=== PATIENT | female | born 1995 | race Caucasian/White ===

== ENCOUNTER → 2016-12-23 | Outpatient (CLI) | payer OTHER | LOC: COL.RAD 12:18 | DX: N83.202 Unspecified ovarian cyst, left side (principal) ==

== ENCOUNTER 2017-04-25 13:01 | Emergency (ER) | payer OTHER ==
[~2017-04-25] VITALS: Ht 160 cm; Wt 106.8 kg
[2017-04-25 13:16] VITALS: TEMP 98.8
[2017-04-25] MEDS ORDERED: JUNEL 1.5 MG-31 EACH PO (13:21)
[2017-04-25 13:58] LABS: LIPASE 87 U/L (23-300)
[2017-04-25 13:59] LABS: ALCOHOL(ethanol),MEDICAL < 10 mg/dL
[2017-04-25] MEDS ORDERED: ZOFRAN ODT4 MG PO (15:06)
[2017-04-25 15:08] VITALS: BP 131/77; PULSE 83
== END 2017-04-25 15:09 | disposition home or self-care (01) ==
LOC: COL.ER 13:01
PROVIDERS: Emergency Medicine
DX: R11.10 Vomiting, unspecified (principal)
CPT/HCPCS: J1885; J2405; J7030

== ENCOUNTER 2018-11-21 19:32 | Emergency (ER) | payer OTHER ==
[~2018-11-21] VITALS: Ht 160 cm; Wt 118.2 kg
[~2018-11-21 19:32] MED LIST: JUNEL 1.5 MG-31 EACH PO; ZOFRAN ODT4 MG PO
[2018-11-21 19:47] VITALS: TEMP 98.6
[2018-11-21 20:23] LABS: STREP SCREEN NEGATIVE
[2018-11-21 22:14] VITALS: BP 148/80; PULSE 81
== END 2018-11-21 22:15 | disposition home or self-care (01) ==
LOC: COL.ER 19:32
PROVIDERS: Emergency Medicine
DX: J02.9 Acute pharyngitis, unspecified (principal)